=== PATIENT | male | born 1975 | race Caucasian/White ===

== ENCOUNTER 2023-11-26 23:19 | Emergency (ER) | payer MEDICAID ==
[~2023-11-26] VITALS: Ht 172.7 cm; Wt 65.0 kg
[2023-11-26 23:33] VITALS: O2SAT 98
[2023-11-26] MEDS: IBUPROFEN 600MG TABLET PO STA (23:59)
[2023-11-27] LABS: BASOPHILS % 0.7 % (0.0-2.0); EOSINOPHILS % 8.3 % (0.0-5.0); HEMATOCRIT. 33.9 % (42.0-52.0); HEMOGLOBIN. 11.3 g/dL (14.0-18.0); MEAN CORPUSCULAR HEMOGLOBIN 29.7 pg (28.0-32.0); MEAN CORPUSCULAR HGB CONC 33.4 g/dL (31.0-37.0); MEAN CORPUSCULAR VOLUME 89.1 fL (80.0-94.0); MEAN PLATELET VOLUME 7.7 fl (7.4-10.4); MONOCYTES % 8.6 % (2.0-8.0); NEUTROPHILS % 63.4 % (40.0-76.0); PLATELET 341 x1000/uL (130-400); RED BLOOD CELL COUNT 3.81 mill/uL (4.7-6.1); RED CELL DISTRIBUTION WIDTH 14.3 % (11.6-14.6)
[2023-11-27 00:06] LABS: CHLORIDE 106 mEq/L (98-107); POTASSIUM 3.7 mEq/L (3.5-5.1); SODIUM 139 mEq/L (136-145)
[2023-11-27 00:07] LABS: CARBON DIOXIDE 26 mEq/L (21-32)
[2023-11-27 00:08] LABS: CALCIUM 9.2 mg/dL (8.7-10.4)
[2023-11-27 00:12] LABS: CREATININE 1.2 mg/dL (0.6-1.3); GLUCOSE 90 mg/dL (70-105); UREA NITROGEN BLOOD 37 mg/dL (9-23)
[2023-11-27] MEDS: SODIUM CHLORIDE 0.9% 1,000 ML IV ONE (01:30)
[2023-11-27] MEDS: IOHEXOL-300 100 ML BOTTLE ONE (06:58)
[2023-11-27 07:00] LABS: CLARITY URINE CLOUDY (CLEAR); COLOR URINE YELLOW (YELLOW); GLUCOSE URINE NEGATIVE (NEGATIVE); KETONES URINE TRACE (NEGATIVE); LEUKOCYTE ESTERASE URINE 2+ (NEGATIVE); NITRITE URINE NEGATIVE (NEGATIVE); OCCULT BLOOD URINE 3+ (NEGATIVE); PH URINE 6.5 (4.5-8.0); PROTEIN URINE TRACE (NEGATIVE); SPECIFIC GRAVITY URINE 1.029 (1.005-1.030)
[2023-11-27 07:15] LABS: BACTERIA URINE 3+; MUCUS URINE 2+ /lpf (NONE/TRACE); RBC URINE TNTC /hpf (0-2); SQUAMOUS EPITHELIAL CELL URINE 2+ /lpf (RARE/1+); WBC URINE 25-50 /hpf (0-2)
[2023-11-27 08:11] VITALS: TEMP 97.9
[2023-11-27 08:30] VITALS: BP 116/80; PULSE 70; RESP 18
[2023-11-27] MEDS: MORPHINE SULFATE 4 MG/ML INJ (FOR IV/IM USE) IV STA (08:30)
[2023-11-27] MEDS: ONDANSETRON HCL 4MG/2ML INJ IV STA (08:30)
== END 2023-11-27 08:38 | disposition short-term general hospital (02) ==
LOC: ER 23:19
DX: S22.32XA Fracture of one rib, left side, initial encounter for closed fracture (principal); E11.9 Type 2 diabetes mellitus without complications; I10 Essential (primary) hypertension; W05.0XXA Fall from non-moving wheelchair, initial encounter; Y93.89 Activity, other specified; Y92.89 Other specified places as the place of occurrence of the external cause; Y99.8 Other external cause status
CPT/HCPCS: 80048; 85025; 36415; 71101; 93005; 99285; 81003; 87086; 87186; 87077; 71260; 74177; 96361; 96374; 96375; Q9967; J2405; J2270; J7030; Z7610